=== PATIENT | female | born 1985 | race American Indian/Alaskan Native ===

== ENCOUNTER 2017-05-11 11:20 | Outpatient (CLI) | payer OTHER ==
--- NOTE | 2017-05-11 20:26 | Ultrasound Report ---
FINAL REPORT PROCEDURE: US THRYROID SCAN TECHNIQUE: Focused real-time sonography in multiple planes of the below described organs, glands and soft tissues of the neck was performed with image documentation. CPT 11798 HISTORY: THYROID NODULE. Thyroid ultrasound. COMPARISON: No prior studies are available for comparison. FINDINGS: Bilateral lobes of thyroid demonstrate normal size and echotexture. Right lobe measures 5.2 x 1.8 x 2.1 centimeters and left lobe measures 5.9 x 1.9 x 2.5 centimeters. Isthmus demonstrates a hypoechoic nodule measuring 0.9 x 0.8 centimeters. There are no microcalcifications. IMPRESSION: Isthmus nodule measuring 0.9 x 0.8 centimeters. Remaining gland is unremarkable.
== END 2017-05-11 11:21 | disposition home or self-care (01) ==
LOC: US 11:20
PROVIDERS: ATTEND Internal Medicine
DX: E04.1 Nontoxic single thyroid nodule (principal)
CPT/HCPCS: 76536

== ENCOUNTER 2017-07-04 13:18 | Emergency (ER) | payer OTHER ==
[2017-07-04] MEDS ORDERED: MOTRIN PO ONE (15:56)
[2017-07-04] MEDS ORDERED: FLEXERIL PO ONE (15:56)
[2017-07-04] MEDS ORDERED: COZAAR PO ONE (16:07)
[2017-07-04] MEDS ORDERED: CATAPRES PO ONE (16:07)
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
--- NOTE | 2017-07-04 16:38 | XRay Report ---
FINAL REPORT EXAM: XR HUMERUS 2+V LT HISTORY: shoulder/humerus pain COMPARISON: None. TECHNIQUE: Views of the left humerus FINDINGS: There is normal alignment without acute fracture or dislocation. The joint spaces are preserved. The overlying soft tissues are intact. IMPRESSION: No acute bony abnormality of the left humerus.
--- NOTE | 2017-07-04 16:39 | XRay Report ---
FINAL REPORT EXAM: XR SHOULDER 2+V LT HISTORY: shoulder/humerus pain COMPARISON: None. TECHNIQUE: Three views of the left shoulder FINDINGS: There is normal alignment without acute fracture or dislocation. The glenohumeral and acromioclavicular joint spaces are preserved. The overlying soft tissues are intact. IMPRESSION: No acute bony abnormality of the left shoulder.
[2017-07-04 17:46] VITALS: BP 155/99
== END 2017-07-04 17:45 | disposition home or self-care (01) ==
LOC: ED 13:18
DX: S46.912A Strain of unspecified muscle, fascia and tendon at shoulder and upper arm level, left arm, initial encounter (principal); I10 Essential (primary) hypertension; J45.909 Unspecified asthma, uncomplicated; G43.909 Migraine, unspecified, not intractable, without status migrainosus; Y04.2XXA Assault by strike against or bumped into by another person, initial encounter; Y93.89 Activity, other specified; Y92.89 Other specified places as the place of occurrence of the external cause; Y99.8 Other external cause status

== ENCOUNTER 2018-06-15 11:18 | Emergency (ER) | payer OTHER ==
--- NOTE | 2018-06-15 11:25 | Emergency Department Report ---
Blank Doc - Documentation Documentation: This is a 33-year-old female that presents with right flank pain and pelvic pa in. Some nausea without any vomiting. This initial assessment/diagnostic orders/clinical plan/treatment(s) is/are subject to change based on patient's health status, clinical progression and re-assessment by fellow clinical providers in the ED. Further treatment and workup at subsequent clinical providers discretion. Patient/guardians urged not to elope from the ED as their condition may be serious if not clinically assessed and managed. Initial orders include: 1- Patient sent to [facility] for further evaluation and treatment 2- UA 3- labs
[2018-06-15 11:52] LABS: Basophils % (Auto) 0.8 % (0.0-1.8); Eosinophils # (Auto) 0.1 K/mm3 (0.0-0.4); Eosinophils % (Auto) 1.3 % (0.0-4.3); Hematocrit 38.1 % (30.3-42.9); Lymphocytes # (Auto) 2.1 K/mm3 (1.2-5.4); Lymphocytes % (Auto) 48.1 % (13.4-35.0); Mean Corpuscular HGB Conc 34 % (30-34); Mean Corpuscular Volume 81 fl (79-97); Monocytes # (Auto) 0.4 K/mm3 (0.0-0.8); Platelet Count 235 K/mm3 (140-440); Red Blood Count 4.72 M/mm3 (3.65-5.03); Red Cell Distribution Width 13.5 % (13.2-15.2)
[2018-06-15 12:10] LABS: Bilirubin,Urine NEG (Negative); Blood,Urine NEG (Negative); Color,Urine Yellow (Yellow); Protein,Urine <15 mg/dL mg/dL (Negative); Urobilinogen,Urine < 2.0 mg/dL (<2.0); WBC,Urine < 1.0 /HPF (0.0-6.0)
--- NOTE | 2018-06-15 12:12 | Emergency Department Report ---
ED Abdominal Pain HPI - General Chief Complaint: Abdominal Pain Stated Complaint: BACK/STOMACH PAIN Time Seen by Provider: 06/15/18 11:24 Source: patient Mode of arrival: Ambulatory Limitations: No Limitations - History of Present Illness Initial Comments: Patient is 33 years old female with no significant past medical history. Patient presented to the ER complaining of 2-1/2 weeks of bilateral flank pain associated with increased urinary frequency. Patient denied any nausea or vomiting. No vaginal bleeding. Patient denied any chest pain or shortness of breath. No fever or chills. MD Complaint: abdominal pain, flank pain -: week(s) (2.5) Location: L flank, R flank Radiation: none Migration to: no migration Severity scale (0 -10): 8 Consistency: constant - Related Data Previous Rx's Medication Instructions Recorded Last Taken Type Metoclopramide HCl [Reglan] 10 mg PO TID PRN #20 tablet 08/31/14 Unknown Rx Tramadol HCl [traMADol] 50 mg PO TID PRN #20 tablet 08/31/14 Unknown Rx amLODIPine [Norvasc] 2.5 mg PO DAILY 30 Days tab 08/31/14 Unknown Rx Ondansetron [Zofran ODT TAB] 8 mg PO Q8HR #20 tab.rapdis 12/26/15 Unknown Rx Cyclobenzaprine [Flexeril] 10 mg PO TID PRN #10 tablet 07/04/17 Unknown Rx Ibuprofen [Motrin] 600 mg PO Q8H PRN #30 tablet 07/04/17 Unknown Rx Ibuprofen [Motrin] 600 mg PO Q8H PRN #20 tablet 04/13/18 Unknown Rx traMADol [Ultram] 50 mg PO Q6HR PRN #10 tablet 04/13/18 Unknown Rx Allergies Allergy/AdvReac Type Severity Reaction Status Date / Time lisinopril Allergy Vomiting Verified 10/26/17 10:38 ED Review of Systems ROS: Stated complaint: BACK/STOMACH PAIN Other details as noted in HPI Comment: All other systems reviewed and negative Constitutional: denies: chills, fever Respiratory: denies: cough, orthopnea, shortness of breath Cardiovascular: denies: chest pain, palpitations Gastrointestinal: denies: abdominal pain, nausea, vomiting, constipation Genitourinary: urgency, dysuria, frequency. denies: discharge, abnormal menses Neurological: denies: headache, weakness ED Past Medical Hx - Past Medical History Previous Medical History?: Yes Hx Hypertension: Yes Hx Headaches / Migraines: Yes Hx Asthma: Yes Additional medical history: villegas's palsy - Surgical History Past Surgical History?: No Additional Surgical History: denies - Social History Smoking Status: Never Smoker Substance Use Type: None - Medications Home Medications: Home Medications Medication Instructions Recorded Confirmed Last Taken Type Metoclopramide HCl [Reglan] 10 mg PO TID PRN #20 tablet 08/31/14 Unknown Rx Tramadol HCl [traMADol] 50 mg PO TID PRN #20 tablet 08/31/14 Unknown Rx amLODIPine [Norvasc] 2.5 mg PO DAILY 30 Days tab 08/31/14 Unknown Rx Ondansetron [Zofran ODT TAB] 8 mg PO Q8HR #20 tab.rapdis 12/26/15 Unknown Rx Cyclobenzaprine [Flexeril] 10 mg PO TID PRN #10 tablet 07/04/17 Unknown Rx Ibuprofen [Motrin] 600 mg PO Q8H PRN #30 tablet 07/04/17 Unknown Rx Ibuprofen [Motrin] 600 mg PO Q8H PRN #20 tablet 04/13/18 Unknown Rx traMADol [Ultram] 50 mg PO Q6HR PRN #10 tablet 04/13/18 Unknown Rx ED Physical Exam - General Limitations: No Limitations General appearance: alert, in no apparent distress - Head Head exam: Present: atraumatic, normocephalic, normal inspection - Eye Eye exam: Present: normal appearance - ENT ENT exam: Present: normal exam, normal orophraynx, mucous membranes moist - Neck Neck exam: Present: normal inspection, full ROM. Absent: tenderness, meningismus, lymphadenopathy, thyromegaly - Respiratory Respiratory exam: Present: normal lung sounds bilaterally. Absent: respiratory distress, wheezes, rales, rhonchi, stridor, accessory muscle use, decreased breath sounds, prolonged expiratory - Cardiovascular Cardiovascular Exam: Present: regular rate, normal rhythm, normal heart sounds - GI/Abdominal GI/Abdominal exam: Present: soft, normal bowel sounds. Absent: distended, tenderness, guarding, rebound, rigid, organomegaly, mass, bruit, pulsatile mass - Extremities Exam Extremities exam: Present: normal inspection, full ROM, normal capillary refill - Back Exam Back exam: Present: normal inspection, full ROM, CVA tenderness (R), CVA tenderness (L). Absent: muscle spasm, paraspinal tenderness, vertebral tenderness - Neurological Exam Neurological exam: Present: alert, oriented X3, CN II-XII intact, normal gait, reflexes normal - Skin Skin exam: Present: warm, intact, normal color ED Course Vital Signs 06/15/18 06/15/18 11:23 13:47 Temperature 98.7 F 97.7 F Pulse Rate 82 74 Respiratory 16 18 Rate Blood Pressure 148/96 Blood Pressure 151/91 [Right] O2 Sat by Pulse 100 100 Oximetry ED Medical Decision Making - Lab Data Result diagrams: 06/15/18 11:40 06/15/18 11:40 - Radiology Data Radiology results: report reviewed CT abdomen and pelvis is unremarkable. Critical care attestation.: If time is entered above; I have spent that time in minutes in the direct care of this critically ill patient, excluding procedure time. ED Disposition Clinical Impression: Back pain, Dysuria Disposition: DC-01 TO HOME OR SELFCARE Is pt being admited?: No Condition: Stable Instructions: Abdominal Pain (ED), Dysuria (ED) Referrals: SHARLA FABIAN MD [Primary Care Provider] - 3-5 Days
[2018-06-15 12:15] LABS: Mucus,Urine FEW /HPF
[2018-06-15 12:16] LABS: Alanine Aminotransferase 17 units/L (7-56); BUN/Creatinine Ratio 11; Blood Urea Nitrogen 9 mg/dL (7-17); Calcium 9.4 mg/dL (8.4-10.2); Hemolysis Index 3
[2018-06-15 12:20] LABS: Bilirubin,Direct < 0.2 mg/dL (0-0.2)
[2018-06-15] MEDS ORDERED: TORADOL IM ONE (13:47)
[2018-06-15 13:48] VITALS: BP 151/91
--- NOTE | 2018-06-15 14:05 | Cat Scan Report ---
CT ABDOMEN PELVIS WITHOUT CONTRAST: HISTORY: Abdominal pain, bilateral flank pain. COMPARISON: none. TECHNIQUE: Helical CT in 1.25mm intervals without IV contrast. Sagittal and coronal reconstructions. FINDINGS: Lung bases: Normal. Liver: Normal. Biliary system: Normal. Pancreas: Normal. Spleen: Normal. Kidneys/ureters/bladder: Normal. Adrenal glands: Normal. Aorta: Normal. Intestines: Normal. Appendix: Normal. Pelvic viscera: Normal. Ascites: None. Adenopathy: None. Musculoskeletal: Normal. IMPRESSION: Unremarkable CT scan of the abdomen and pelvis without contrast.
== END 2018-06-15 14:33 | disposition home or self-care (01) ==
LOC: ED 11:18
DX: M54.9 Dorsalgia, unspecified (principal); R30.0 Dysuria; I10 Essential (primary) hypertension; G43.909 Migraine, unspecified, not intractable, without status migrainosus; J45.909 Unspecified asthma, uncomplicated; G51.0 Bell's palsy; Z88.5 Allergy status to narcotic agent
CPT/HCPCS: 36415; 74176; 80048; 80076; 81001; 83690; 84703; 85025; 96372; 99284; J1885

== ENCOUNTER 2019-09-18 13:04 | Emergency (ER) | payer OTHER ==
--- NOTE | 2019-09-18 14:29 | Event Note ---
ED Screening Note ED Screening Note: numbness back and ble pain due for menses no dc no dysuria no fever/ chills htn This initial assessment/diagnostic orders/clinical plan/treatment(s) is/are subject to change based on patients health status, clinical progression and re- assessment by fellow clinical providers in the ED. Further treatment and workup at subsequent clinical providers discretion. Patient/guardian urged not to elope from the ED as their condition may be serious if not clinically assessed and managed. Initial orders include: labs ua
[2019-09-18 15:56] LABS: Bilirubin,Urine NEG (Negative); Blood,Urine SM (Negative); Color,Urine Yellow (Yellow); Mucus,Urine FEW /HPF; Urobilinogen,Urine < 2.0 mg/dL (<2.0)
[2019-09-18 16:21] LABS: HCG Qualitative,Urine Negative (Negative)
[2019-09-18 16:29] LABS: Basophils % (Auto) 0.2 % (0.0-1.8); Hematocrit 42.7 % (30.3-42.9); Lymphocytes % (Auto) 35.6 % (13.4-35.0); Mean Corpuscular HGB Conc 33 % (30-34); Mean Corpuscular Volume 83 fl (79-97); Monocytes # (Auto) 0.6 K/mm3 (0.0-0.8); Monocytes % (Auto) 10.3 % (0.0-7.3); Platelet Count 217 K/mm3 (140-440); Red Blood Count 5.18 M/mm3 (3.65-5.03); Red Cell Distribution Width 13.6 % (13.2-15.2)
[2019-09-18 16:53] LABS: Alanine Aminotransferase 25 units/L (7-56); Albumin 4.5 g/dL (3.9-5); BUN/Creatinine Ratio 10; Blood Urea Nitrogen 9 mg/dL (7-17); Calcium 9.8 mg/dL (8.4-10.2); Hemolysis Index 16
[2019-09-18] MEDS ORDERED: SODIUM CHLORIDE 0.9% 1000 ML 1,000 ML IV ONE (21:53)
[2019-09-18] MEDS ORDERED: ONDANSETRON 4 MG/2 ML INJ IV STA (21:53)
[2019-09-18] MEDS ORDERED: HYOSCYAMINE SUBL 0.125 MG TAB SL ONE (21:53)
--- NOTE | 2019-09-18 22:12 | Emergency Department Report ---
ED N/V/D HPI - General Chief complaint: Abdominal Pain Stated complaint: VOMITING/LEG NUMBNESS Time Seen by Provider: 09/18/19 14:09 Source: patient Mode of arrival: Ambulatory Limitations: No Limitations - History of Present Illness Initial comments: 34-year-old obese -[place] female past medical history of allergy presents emergency department complaining of 2-day history of vomiting preceded by a 4-day history of nausea for which she initially sought therapy with a tele- doc x2. She was initially diagnosed with bronchitis treated with a Z-Johnson steroids and Symbicort after taking medication she began to develop some nausea and a few episodes of vomiting. MD complaint: nausea, vomiting -: Gradual Associated Abdominal Pain: No Radiation: none Quality: aching, dull Consistency: constant Improves with: none Worsens with: none Associated Symptoms: denies: myalgias, chest pain, diaphoresis, fever/chills, loss of appetite, malaise, nausea/vomiting, dysuria - Related Data Previous Rx's Medication Instructions Recorded Last Taken Type Metoclopramide HCl [Reglan] 10 mg PO TID PRN #20 tablet 08/31/14 Unknown Rx Tramadol HCl [traMADol] 50 mg PO TID PRN #20 tablet 08/31/14 Unknown Rx amLODIPine 2.5 mg PO DAILY 30 Days tab 08/31/14 Unknown Rx Cyclobenzaprine [Flexeril] 10 mg PO TID PRN #10 tablet 07/04/17 Unknown Rx Ibuprofen [Motrin] 600 mg PO Q8H PRN #30 tablet 07/04/17 Unknown Rx Ibuprofen [Motrin] 600 mg PO Q8H PRN #20 tablet 04/13/18 Unknown Rx traMADoL [Ultram] 50 mg PO Q6HR PRN #10 tablet 04/13/18 Unknown Rx Ciprofloxacin HCl [Ciprofloxacin 500 mg PO Q12H #14 tab 06/15/18 Unknown Rx TAB] Ondansetron [Zofran Odt] 4 mg PO Q8HR PRN #14 tab.rapdis 06/15/18 Unknown Rx traMADoL [Ultram 50 MG tab] 50 mg PO Q4HR PRN #14 tablet 06/15/18 Unknown Rx Hyoscyamine Subl [Levsin Sl 0.125 0.125 mg SL Q6HR PRN #20 tab 09/19/19 Unknown Rx TAB] Ondansetron [Zofran ODT TAB] 8 mg PO Q8HR #20 tab.rapdis 09/19/19 Unknown Rx Allergies Allergy/AdvReac Type Severity Reaction Status Date / Time lisinopril Allergy Vomiting Verified 09/18/19 14:09 ED Review of Systems ROS: Stated complaint: VOMITING/LEG NUMBNESS Other details as noted in HPI Comment: All other systems reviewed and negative ED Past Medical Hx - Past Medical History Hx Hypertension: Yes Hx Headaches / Migraines: Yes Hx Asthma: Yes Additional medical history: villegas's palsy - Surgical History Additional Surgical History: denies - Social History Smoking Status: Never Smoker Substance Use Type: None - Medications Home Medications: Home Medications Medication Instructions Recorded Confirmed Last Taken Type Metoclopramide HCl [Reglan] 10 mg PO TID PRN #20 tablet 08/31/14 Unknown Rx Tramadol HCl [traMADol] 50 mg PO TID PRN #20 tablet 08/31/14 Unknown Rx amLODIPine 2.5 mg PO DAILY 30 Days tab 08/31/14 Unknown Rx Cyclobenzaprine [Flexeril] 10 mg PO TID PRN #10 tablet 07/04/17 Unknown Rx Ibuprofen [Motrin] 600 mg PO Q8H PRN #30 tablet 07/04/17 Unknown Rx Ibuprofen [Motrin] 600 mg PO Q8H PRN #20 tablet 04/13/18 Unknown Rx traMADoL [Ultram] 50 mg PO Q6HR PRN #10 tablet 04/13/18 Unknown Rx Ciprofloxacin HCl [Ciprofloxacin 500 mg PO Q12H #14 tab 06/15/18 Unknown Rx TAB] Ondansetron [Zofran Odt] 4 mg PO Q8HR PRN #14 tab.rapdis 06/15/18 Unknown Rx traMADoL [Ultram 50 MG tab] 50 mg PO Q4HR PRN #14 tablet 06/15/18 Unknown Rx Hyoscyamine Subl [Levsin Sl 0.125 0.125 mg SL Q6HR PRN #20 tab 09/19/19 Unknown Rx TAB] Ondansetron [Zofran ODT TAB] 8 mg PO Q8HR #20 tab.rapdis 09/19/19 Unknown Rx ED Physical Exam - General Limitations: No Limitations General appearance: alert, in no apparent distress - Head Head exam: Present: atraumatic, normocephalic - Eye Eye exam: Present: normal appearance, PERRL, EOMI Pupils: Present: normal accommodation - ENT ENT exam: Present: normal exam, normal orophraynx, mucous membranes moist, TM's normal bilaterally - Neck Neck exam: Present: normal inspection, full ROM - Respiratory Respiratory exam: Present: normal lung sounds bilaterally. Absent: respiratory distress, wheezes, rales - Cardiovascular Cardiovascular Exam: Present: regular rate, normal rhythm. Absent: systolic murmur, diastolic murmur, rubs, gallop - GI/Abdominal GI/Abdominal exam: Present: soft, normal bowel sounds. Absent: tenderness, guarding, hyperactive bowel sounds, hypoactive bowel sounds, organomegaly, mass - Extremities Exam Extremities exam: Present: normal inspection - Back Exam Back exam: Present: normal inspection - Neurological Exam Neurological exam: Present: alert, oriented X3 - Psychiatric Psychiatric exam: Present: normal affect, normal mood - Skin Skin exam: Present: warm, dry, intact, normal color. Absent: rash ED Course Vital Signs 09/18/19 09/18/19 14:07 14:28 Temperature 98.1 F Pulse Rate 80 Respiratory 20 18 Rate Blood Pressure 166/99 O2 Sat by Pulse 100 99 Oximetry ED Medical Decision Making - Lab Data Result diagrams: 09/18/19 15:32 09/18/19 15:32 - Medical Decision Making Their evaluation has not identified a emergent etiology for the nausea vomiting or mild abdominal pain. Specifically, given the very benign exam, normal laboratory studies, and lack of significant risk factors, I have a very low suspicion for appendicitis, ischemic bowel, bowel perforation, or any other life threatening disease. I have discussed with the patient the level of uncertainty with undifferentiated abdominal pain and clearly explained the need to follow-up as noted on the discharge instructions, or return to the Emergency Department immediately if the pain worsens, develops fever, persistent and uncontrollable vomiting, or for any new symptoms or concerns. I discussed with the patient that this presentation today for abdominal pain could represent a significant risk for an acute abdominal process. Although the tests in the ED were essentially normal, there is still a possibility of a process such as appendicitis, diverticulitis, cholecystitis, ulcer, early bowel obstruction, mesenteric ischemia, kidney stone, or even kidney infection which could subsequently cause disability or . The patient understands that they must return within 24 hours for a recheck or see their physician within 24 hours for re-exam due to the possibility of significant surgical or medical process. Critical care attestation.: If time is entered above; I have spent that time in minutes in the direct care of this critically ill patient, excluding procedure time. ED Disposition Clinical Impression: Nausea and vomiting Disposition: DC-01 TO HOME OR SELFCARE Is pt being admited?: No Does the pt Need Aspirin: No Condition: Stable Instructions: Abdominal Pain (ED) Prescriptions: Hyoscyamine Subl [Levsin Sl 0.125 TAB] 0.125 mg SL Q6HR PRN #20 tab PRN Reason: abd pain Ondansetron [Zofran ODT TAB] 8 mg PO Q8HR #20 tab.[email or web address] Referrals: PRIMARY CARE, [Primary Care Provider] - 3-5 Days [facility] [Provider Group] - 3-5 Days
[2019-09-19 02:01] VITALS: BP 160/87
== END 2019-09-19 01:45 | disposition home or self-care (01) ==
LOC: ED 13:04
DX: R11.2 Nausea with vomiting, unspecified (principal); I10 Essential (primary) hypertension; J45.909 Unspecified asthma, uncomplicated; G43.909 Migraine, unspecified, not intractable, without status migrainosus; G51.0 Bell's palsy; Z79.899 Other long term (current) drug therapy; Z88.6 Allergy status to analgesic agent
CPT/HCPCS: 36415; 80053; 81001; 81025; 83690; 85025; 96361; 96374; 99283; J2405; J7030

== ENCOUNTER 2021-08-19 21:25 | Emergency (ER) | payer OTHER ==
[2021-08-19 22:09] VITALS: BP 158/90
[2021-08-19 23:50] LABS: Bilirubin,Urine NEG (Negative); Blood,Urine NEG (Negative); Color,Urine Straw (Yellow); Protein,Urine <15 mg/dL mg/dL (Negative); Urobilinogen,Urine < 2.0 mg/dL (<2.0)
[2021-08-19 23:58] LABS: Mucus,Urine FEW /HPF
[2021-08-20 00:25] LABS: Basophils % (Auto) 0.4 % (0.0-1.8); Eosinophils # (Auto) 0.1 K/mm3 (0.0-0.4); Eosinophils % (Auto) 0.7 % (0.0-4.3); Hematocrit 38.4 % (30.3-42.9); Hemoglobin 12.5 gm/dl (10.1-14.3); Lymphocytes # (Auto) 3.8 K/mm3 (1.2-5.4); Lymphocytes % (Auto) 45.7 % (13.4-35.0); Mean Corpuscular HGB Conc 32 % (30-34); Mean Corpuscular Volume 76 fl (79-97); Monocytes # (Auto) 0.7 K/mm3 (0.0-0.8); Monocytes % (Auto) 7.9 % (0.0-7.3); Platelet Count 312 K/mm3 (140-440); Red Blood Count 5.08 M/mm3 (3.65-5.03); Red Cell Distribution Width 14.9 % (13.2-15.2)
[2021-08-20 00:27] LABS: Alanine Aminotransferase 15 units/L (7-56); Albumin 4.2 g/dL (3.9-5); Blood Urea Nitrogen 6 mg/dL (7-17); Calcium 9.6 mg/dL (8.4-10.2); Hemolysis Index 3
[2021-08-20 00:35] LABS: BUN/Creatinine Ratio 9
== END 2021-08-20 05:59 | disposition left against medical advice (07) ==
LOC: ED 21:25
DX: R10.9 Unspecified abdominal pain (principal); Z53.21 Procedure and treatment not carried out due to patient leaving prior to being seen by health care provider
CPT/HCPCS: 36415; 80053; 81001; 82150; 83690; 84703; 85025; 87086